=== PATIENT | female | born 1955 | race Caucasian/White ===

== ENCOUNTER 2017-02-20 09:07 | Emergency (ER) | payer OTHER ==
[~2017-02-20] VITALS: Ht 182.9 cm; Wt 82.2 kg
[2017-02-20 09:17] VITALS: Ht 182.9 cm; Wt 82.2 kg
[2017-02-20 10:58] LABS: BASOPHIL % 0.3 % (0-2); PLATELET COUNT 222 x10^3mcL (130-400); RED CELL DISTRIBUTION WIDTH 13.5 % (11.5-14.5)
[2017-02-20 11:22] LABS: CALCIUM 8.4 mg/dL (8.5-10.1); CARBON DIOXIDE 26.6 mmol/L (21-32); CHLORIDE SERUM 106 mmol/L (98-107); GFR1 > 60 mL/min; GLUCOSE SERUM 101 mg/dL (74-106); SODIUM SERUM 142 mmol/L (136-145)
[2017-02-20 11:26] LABS: ALBUMIN 3.6 g/dL (3.4-5.0); ALKALINE PHOSPHATASE 61 U/L (46-116); ALT/SGPT 26 U/L (14-59); AST/SGOT 15 U/L (15-37); BILIRUBIN TOTAL 1.5 mg/dL (0.20-1.00); LIPASE 113 IU/L (73-393)
[2017-02-20 13:24] VITALS: BP 114/68
== END 2017-02-20 13:00 | disposition home or self-care (01) ==
LOC: ED 09:07
PROVIDERS: Emergency Medicine
DX: K57.92 Diverticulitis of intestine, part unspecified, without perforation or abscess without bleeding (principal)
CPT/HCPCS: J1170; J2405; J7030

== ENCOUNTER 2018-03-11 22:21 | Observation (INO) | payer OTHER ==
[~2018-03-11] VITALS: Ht 180.3 cm; Wt 78.6 kg
[2018-03-11 22:35] VITALS: Ht 180.3 cm; Wt 78.6 kg
[2018-03-11 23:15] LABS: BASOPHIL % 0.3 % (0-2); PLATELET COUNT 230 x10^3mcL (130-400); RED CELL DISTRIBUTION WIDTH 13.6 % (11.5-14.5)
[2018-03-11 23:21] LABS: CALCIUM 8.7 mg/dL (8.5-10.1); CARBON DIOXIDE 28.6 mmol/L (21-32); CHLORIDE SERUM 107 mmol/L (98-107); CREATININE SERUM 1.1 mg/dL (0.7-1.3); GFR1 > 60 mL/min; GLUCOSE SERUM 115 mg/dL (74-106); POTASSIUM SERUM 4.5 mmol/L (3.5-5.1); SODIUM SERUM 143 mmol/L (136-145)
[2018-03-11 23:26] LABS: ALBUMIN 3.7 g/dL (3.4-5.0); ALKALINE PHOSPHATASE 69 U/L (46-116); ALT/SGPT 25 U/L (16-63); AST/SGOT 23 U/L (15-37); BILIRUBIN TOTAL 0.43 mg/dL (0.20-1.00); MAGNESIUM 1.9 mg/dL (1.8-2.4); TOTAL PROTEIN, SERUM 6.9 g/dL (6.4-8.2)
[2018-03-12 00:05] LABS: AMPHETAMINE QUAL UR NONE DETECTED (See below)
[2018-03-12 02:53] VITALS: BP 110/59
[2018-03-12 05:32] VITALS: BP 106/59
[2018-03-12 10:06] VITALS: BP 115/68
[2018-03-12 13:41] VITALS: BP 133/78
[2018-03-12 17:10] VITALS: BP 133/78
== END 2018-03-12 18:50 | disposition home or self-care (01) | DRG 313 ==
LOC: EDSEX 22:21 → ED 22:21 → DU 03-12 01:47
PROVIDERS: Emergency Medicine; ADMIT Internal Medicine Pulmonary Disease
DX: R07.89 Other chest pain (principal); R51 Headache; R42 Dizziness and giddiness
CPT/HCPCS: G0378; J2765; J3030; J7030; J8597; Q0092; Q9967

== ENCOUNTER 2019-03-02 16:35 | Inpatient (IN) | payer OTHER ==
[~2019-03-02] VITALS: Ht 182.9 cm; Wt 76.7 kg
[2019-03-02 16:47] VITALS: Ht 182.9 cm; Wt 76.7 kg
--- NOTE | 2019-03-02 17:05 | NUR ---
AWAKE ALERT ORIENTED, HYPERVENTILATING, HAS BEEN COUGHING SINCE 2 WEEKS, LOWER BACK PAIN,AND CHEST PAIN SINCE YESTERDAY DUE TO COUGH,
--- NOTE | 2019-03-02 17:18 | NUR ---
PT STATES HE WILL BE HOMLESS ,LOST THE HOUSE,DOES NOT KNOW WHAT TO DO
[2019-03-02 17:52] LABS: BASOPHIL % 0.3 % (0-2); PLATELET COUNT 200 x10^3mcL (130-400); RED CELL DISTRIBUTION WIDTH 13.7 % (11.5-14.5)
[2019-03-02 17:58] LABS: CALCIUM 9.1 mg/dL (8.5-10.1); CARBON DIOXIDE 27.5 mmol/L (21-32); CHLORIDE SERUM 103 mmol/L (98-107); CREATININE SERUM 1.1 mg/dL (0.7-1.3); GFR1 > 60 mL/min; GLUCOSE SERUM 116 mg/dL (74-106); POTASSIUM SERUM 4.5 mmol/L (3.5-5.1); SODIUM SERUM 140 mmol/L (136-145)
[2019-03-02 18:02] LABS: ALBUMIN 3.8 g/dL (3.4-5.0); ALKALINE PHOSPHATASE 72 U/L (46-116); ALT/SGPT 30 U/L (16-63); AST/SGOT 26 U/L (15-37); BILIRUBIN TOTAL 0.7 mg/dL (0.20-1.00); TOTAL PROTEIN, SERUM 7.7 g/dL (6.4-8.2)
--- NOTE | 2019-03-02 18:21 | NUR ---
BREATHING TREATMENT IN PROGRESS, REMAINS RESTLESS, BREATH SOUNDS WHEEZING
--- NOTE | 2019-03-02 19:17 | NUR ---
PT MEDICATED PER MD ORDER. PT VERBALIZED UNDERSTANDING OF MEDICATION PRIOR TO ADMINISTRATION. PER DR. YAIR BUCKLEY FOR PT TO DRINK WATER AND EAT.
[2019-03-02] MEDS ORDERED: ALBUTEROL1.25 MG/3 NEB (19:50)
[2019-03-02] MEDS ORDERED: CLARITIN10 MG PO (19:50)
[2019-03-02] MEDS ORDERED: ADV250/50 INH (19:50)
--- NOTE | 2019-03-02 20:13 | NUR ---
PT MEDICATED PER MD ORDER. PT VERBALIZED UNDERSTANDING OF MEDICATION PRIOR TO ADMINISTRATION. PT IS LAYING IN GURNEY COMFORTABLY, NO LONGER RESTLESS. REPORTS HE FEELS "MUCH BETTER WITH WHAT YOU GAVE ME". RESP E/U, NAD NOTED. BROTHER AND GIRLFRIEND AT BEDSIDE.
--- NOTE | 2019-03-02 21:10 | NUR ---
PT MEDICATED PER MD ORDER. PT VERBALIZED UNDERSTANDING OF MEDICATION PRIOR TO ADMINISTRATION. PT IS TALKING ON THE PHONE WITH MOTHER, APPEARS RESTLESS AND WEEPING.
[2019-03-02 21:16] VITALS: BP 143/82
--- NOTE | 2019-03-02 22:04 | NUR ---
CONTACTED RT FOR BREATHING TX FOR PT.
--- NOTE | 2019-03-02 22:07 | NUR ---
PT REPORTING PAIN 8/10, GIVEN TYLENOL FOR PAIN. PT APPEARS CALMER, SPEAKING IN FULL CLEAR SENTENCES, RESP E/U, NAD NOTED. PT VERBALIZED UNDERSTANDING OF MEDICATION PRIOR TO ADMINISTRATION.
--- NOTE | 2019-03-02 22:25 | NUR ---
REPORT CALLED TO KAREN LEE TO ASSUME CARE OF PT.
--- NOTE | 2019-03-02 23:00 | NUR ---
RECEIVED PT FROM ED WITH CC CP, SOB AND LOWER BACK PAIN. PT IS AAOX4. C/O 10/10 THROBBING HEADACHE. RESP EVEN AND LABORED, C/O SOB. O2 SAT 99% ON RA. PT STATED HE COULD NOT AFFORD HIS $300 ASTHMA MEDICATION. SHOWING SINUS TACH ON TELE #4, HR 115. REPORTS 8/10 HEAVY CHEST PAIN, NON-RADIATING. BOWEL SOUNDS ACTIVE, ABD SOFT, NON-TENDER. LAST BM 02/28/2019. VOIDING FREELY, REPORTS URINARY FREQUENCY. GEN WEAKNESS. C/O 10/10 ACHING BACK PAIN. IV TO LAC, NO REDNESS OR SWELLING NOTED. ORIENTED TO ROOM AND SURROUNDINGS. BED IN LOW POSITION, CALL LIGHT WITHIN REACH. ENDORSED CARE TO PRIMARY RN ROSA.
[2019-03-02 23:11] VITALS: BP 125/78
--- NOTE | 2019-03-02 23:49 | NUR ---
PT C/O INSOMNIA, MEDICATED WITH PRN AMBIEN PER APR. NO ACUTE DISTRESS NOTED. WILL CONT TO MONITOR.
--- NOTE | 2019-03-03 00:50 | NUR ---
PT LAYING DOWN IN BED, RECEIVING BREATHING TX AT THIS TIME. NO ACUTE DISTRESS NOTED. BED AT LOWEST SETTING. SIDE RAILS X2 UP. CALL LIGHT WITHING REACH. WILL CONT TO MONITOR.
--- NOTE | 2019-03-03 05:30 | NUR ---
PT SLEPT AT INTERVALS THROUGHT THE NIGHT, BREATHING EVEN AND UNLABORED ON RA. PT C/O HEADACHE PAIN 5/10 AND NECK PAIN. MEDICATED WITH PRN TYLENOL PER APR. NO ACUTE DISTRESS NOTED. ALL NEEDS ASSESSED AND ATTENDED TO. IV TO LAC INFUSING AT 70ML/HR. SITE FREE FROM REDNESS AND SWELLING. BED AT LOWEST SETTING. SIDE RAILS X2 UP. CALL LIGHT WITHING REACH. WILL CONT TO MONITOR AND ENDORSE CARE TO AM NUSE.
[2019-03-03 06:21] VITALS: BP 107/65
[2019-03-03 06:24] LABS: PLATELET COUNT 152 x10^3mcL (130-400); RED CELL DISTRIBUTION WIDTH 13.4 % (11.5-14.5)
[2019-03-03 06:34] LABS: ALKALINE PHOSPHATASE 59 U/L (46-116); ALT/SGPT 29 U/L (16-63); AST/SGOT 42 U/L (15-37); BILIRUBIN TOTAL 0.55 mg/dL (0.20-1.00); CALCIUM 7.7 mg/dL (8.5-10.1); CARBON DIOXIDE 26.7 mmol/L (21-32); CHLORIDE SERUM 104 mmol/L (98-107); CREATININE SERUM 0.8 mg/dL (0.7-1.3); GFR1 > 60 mL/min; GLUCOSE SERUM 96 mg/dL (74-106); MAGNESIUM 1.9 mg/dL (1.8-2.4); POTASSIUM SERUM 3.7 mmol/L (3.5-5.1); SODIUM SERUM 141 mmol/L (136-145); TOTAL PROTEIN, SERUM 6.2 g/dL (6.4-8.2)
--- NOTE | 2019-03-03 07:30 | NUR ---
RECEIVED PATIENT FROM PREVIOUS STAFF AND IS SLEEPING AT THIS TIME NO SIGNS OF DISTRESS AND HAD RECEIVED AMBIEN LAST NIGHT AND TYLENOL FOR HEADACHE AT 525 THIS AM. WILL CONTINUE TO MONITOR.
[2019-03-03 07:54] VITALS: BP 116/59
--- NOTE | 2019-03-03 09:36 | NUR ---
GAVE TYLENOL FOR HEADACHE POST THE BREATHING TREATMENT. PATIENT HAS A COUGH AND REPORTED PRODUCTIVE. PATIENT HAS RALES AND SOME WHEEZING TO THE UPPER LOBES. HE HAS NO EDEMA AND ABDOMEN IS FIRM AND FLAT. PATIENT HAS BEEN TOLERATING DIET AND FLUIDS AND HAS HAD A COMPLAINT OF HEADACHE EARLIER TODAY WELL. HE HAS BEEN SEEN BY THE RESIDENT AND INTERNS AND PLAN OF CARE DISCUSSED. PATIEN TS NOW WITH AN ORDER FOR COUGH MEDICATION AND SOLUMEDROL. VITALS AT THIS TIME. 99.2, 84, 18, 116/59, 97%. PATIENT HAS NOTED CA AT 7.7, PROTIEN AT 6.2 AND ALBUMIN 3.0.
[2019-03-03 12:30] VITALS: BP 122/70
[2019-03-03 16:54] VITALS: BP 141/78
--- NOTE | 2019-03-03 18:02 | NUR ---
PATIENT STETS CHINTAN ROBITUSSION WAS EFFECTIVE AND THE CODIENE WAS NOT MAKING HIM SLEEPY. PATIENT HAS NOT BEEN COUGHING FOR A WHILE NOW. WILL CONTINUE TO MONITOR INDICATED.
--- NOTE | 2019-03-03 18:37 | NUR ---
REQUESTED TYLENOL FOR NECK PAIN. WILL ENDORSE TO THE ON COMING SHIFT.
--- NOTE | 2019-03-03 20:01 | NUR ---
RECEIVED PATIENT IN BED AWAKE, ALERT AND ORIENTED WITH NO SIGN OF ACUTE RESPIRATORY DISTRESS. BREATHING EASYA ND NONLABOR WITH CLEAR BS SATTING AT 98% RA. C/O PRODUCTIVE COUGH WITH GRAYISH SPUTUM PER PATIENT. TELE#7 NSR ON MONITOR, DENIES CHESTPAIN. ABDOMEN ROUND AND NON TENDER WITH ACTIVE BS. IV TO LAC INTACT AND INFUSING WELL. WILL CONTINUE TO MONITOR. CALL LIGHT WITHIN REACH.
[2019-03-03 21:19] VITALS: BP 117/72
--- NOTE | 2019-03-03 21:21 | NUR ---
PATIENT COUGHING ,REQUESTED COUGH SYRUP, ROBITUSSIN WITH CODEINE GIVEN PO PRESCRIBED.
--- NOTE | 2019-03-03 23:46 | NUR ---
APPEAR TO BE SLEEPING THIS TIME BREATHING EASYA ND NONLABOR. WILL CONTINUE TO MO ITOR.
--- NOTE | 2019-03-04 05:05 | NUR ---
SLEPT AT LONG INTERVALS, DENIES PAINA ND DISCOMFORT THE ENTIRE SHIFT. ALL NEEDS ATTENDED.
[2019-03-04 05:17] VITALS: BP 114/59
--- NOTE | 2019-03-04 08:00 | NUR ---
RECEIVED PATIENT WITH MOANING AND GROANING AND STATES HE IS WITH NAUSEA AND PAIN. GAVE ZOFRAN ORDERED AND DID NOT REQUEST PAIN MEDICATION AT THIS TIME IV INTACT AND PATIENT GIVEN SOLUMEDROL AND JUST RECEIVED HHN TREATMENT. THE PATIEN TIS NO LONGER WHEEZING AND HAS DENIED COUGING UP ANY MORE PHLEGM. PATIENT HAS BEEN AMBULATORY AND DENIES HAVING A STOOL. DR AGUSTIN IN AND ORDERED SENOKOT AND DUCOLAX FOR THE PATIENT. THE PATIENT SEEMS EMOTIONAL AND SEEMS MORE THAN FOR THE ISSUE AT HAND AND HAD BEEN WITH BOUTS OF DEPRESSION IN HIS HISTORY. HE IS ON ROOM AIR AND NO RESPIRATORY DISTRESS AT THIS TIME. THE COUGH HAS BEEN NON PRODUCTIVE AND PATEINT RECIEVED LEVAQUIN AND NO ADVERSE REACTION NOTED. VITALS AT THIS TIME AT 141/72, 18, 97.2, 74, 97%. WILL CONTINUE TO MONITOR FOR EFFECTIVENESS OF THE ZOFRAN GIVEN.
[2019-03-04 09:01] VITALS: BP 141/72
--- NOTE | 2019-03-04 10:11 | NUR ---
PATIENT HAS FALLEN ASLEEP AND AFTER HIS COMPLAINTS OF LACK OF SLEEP DUE TO NOISE LAST NIGHT, STAFF OPTED TO LET HIM SLEEP AND WILL GIVE THE DUCOLAX AND THE SENOKOT WHEN HE AWAKES AGAIN.
--- NOTE | 2019-03-04 13:18 | NUR ---
PATIENT SHOWS ALOT OF ANXIETY AND IS ALMOST IN TEARS. HE IS NOT ABLE TO HANDLE THE CRAZINESS IN THE WORLD. HE IS TURNING 64 AND WHY CAN'T EVERYONE BE LIKE IT WAS IN THE SIXTIES. THE NURSE IS THE SAME AGE SHE AGREES BUT HE MUST NOT TAKE ON THE WORLDS PROBLEMS AND BE THE LIGHT HE WISHES WAS IN OTHERS. DR CUEVAS CALLED AND ADVISED AND HE IS AWARE OF PATIENT TEARFULNESS AND PSYCH CONDITION. HE MAY NEED TO SEE SOMEONE AFTER DISCHARGE. PATIENT HAS NOT HAD A STOOL YET AND DR WILL BE IN TO ASSESS AND SEE IF HE CAN GO HOME LATER TODAY.
[2019-03-04 13:50] VITALS: BP 138/75
--- NOTE | 2019-03-04 15:46 | NUR ---
STATES HAS NAUSEA POST BREATHING TREATMENT. GAVE ZOFRAN AND WILL MONITOR FOR EFFECTIVENESS.
[2019-03-04 17:40] VITALS: BP 113/73
--- NOTE | 2019-03-04 19:32 | NUR ---
RECEIVED PATIENT IN BED AWAKE, ALERT AND ORIENTED WITH NO SIGN OF DISTRESS NOTED. BREATHING EASY AND NONLABOR SATTING AT 97% RA. TELE# 4 NSR ON MONITOR DENIES CHEST DISCOMFORT. IV TO LAC INTACTR AND INFUSING WELL. WILL CONTINUE TO MONITOR. FAMILY MEMBERS AT BEDSIDE.
--- NOTE | 2019-03-04 19:37 | NUR ---
RESPIRATORY THERAPIST AT BEDSIDE ADMINISTERING BREATHING T REATMENT, PATIENT TOLERATED WELL.
[2019-03-04 20:30] VITALS: BP 102/68
--- NOTE | 2019-03-04 21:14 | NUR ---
C/O HEADACHE TYLENOL 650 MG PO GIVEN PRESCRIBED. WILL CONTINUE TO MONITOR.
--- NOTE | 2019-03-04 23:35 | NUR ---
RECEIVED PT AT THIS TIME. PT AAOX4. DENIES ANY PAIN. NO ACUTE DISTRESS NOTED. CALL BUTTON WITHIN REACH. SAFETY PRECAUTIONS IN PLACE. WILL CONTINUE TO MONITOR.
--- NOTE | 2019-03-05 01:03 | NUR ---
PT REPORTED HAVING DIFFICULT SLEEPING, REQUESTING FOR SLEEPING MEDICATION. MEDICATED PER EMAR. CALL BUTTON WITHIN REACH. SAFETY PRECAUTIONS IN PLACE. WILL MONITOR.
--- NOTE | 2019-03-05 05:01 | NUR ---
PT SLEPT MOST OF THE NIGHT WITH NO ACUTE DISTRESS NOTED. PT USED URINAL AT BEDSIDE. PT BREATHING EVEN AND UNLABORED ON RA W/ NO SOB NOTED. IV PATENT, INFUSING WELL. MEDICATED PER EMAR. NO ACUTE DISTRESS NOTED. CALL BUTTON WITHIN REACH. SAFETY PRECAUTIONS IN PLACE. WILL CONTINUE TO MONITOR AND ENDORSE CARE TO DAY SHIFT RN.
[2019-03-05 05:27] VITALS: BP 120/70
--- NOTE | 2019-03-05 07:50 | NUR ---
RECEIVED PT FROM BROOMCORN SEEDER RN. Leah/PRINCESS. TELE#4. DENIES CHEST PAIN/PRESSURE. RESPIRATIONS EQUAL AND UNLABORED ON RA. DENIES SOB AT THIS TIME. PT C/O COUGH ON AND OFF, PT STATES COUGH IS NONPRODUCTIVE. PT C/O VELAZQUEZ THROBBING. WILL MEDICATE PER EMAR. PT DENIES ANY N/V AT THIS TIME. PT SITTING UP EATING BREAKFAST TOLERATING WELL. IV TO LAC PATENT AND INFUSING. NO REDNESS OR SWELLING NOTED. ASKED PT IF HE HAS SOMEWHERE TO GO UPON DISCHARGE. PT STATES "MY GIRLFRIEND STEPHAN LIVES HERE IN [place]. SHE WILL PICK ME UP. HOPEFULLY I CAN GO HOME TODAY." EXPLAINED TO PT WILL AWAIT FOR DOCTOR TO FIND OUT POC. PT VERBALIZED UNDERSTANDING. WILL CONTINUE TO MONITOR. CALL LIGHT IN REACH. BED IN LOWEST POSITION.
--- NOTE | 2019-03-05 08:02 | NUR ---
PT IN NO ACUTE DISTRESS. ENDORSED CARE TO DAY SHIFT RN, ALL QUESTIONS ADDRESSED.
[2019-03-05 08:04] VITALS: BP 118/73
[2019-03-05] MEDS ORDERED: VENTOLIN H0.09 MG/A1 INH (08:20)
[2019-03-05] MEDS ORDERED: LEVOFLOXACIN500 M1 PO (08:21)
[2019-03-05] MEDS ORDERED: WIXELA 250-501 EACH IH (08:21)
[2019-03-05] MEDS ORDERED: PREDNISONE10 MG PO (08:22)
[2019-03-05 08:38] VITALS: BP 118/73
--- NOTE | 2019-03-05 08:58 | NUR ---
PT SITTING UP IN BED. PT CONTINUALLY HAVING NONPRODUCTIVE COUGH. PT C/O NAUSEA. MEDICATED PER EMAR. RESPIRATORY THERAPIST AT BEDSIDE, WILL COME BACK TO GIVE BREATHING TREATMENT DUE TO PT FEELING NAUSEOUS. GIVEN PO MEDS. TOLERATED WELL. IV TO LAC PATENT AND INFUSING. NO REDNESS OR SWELLING NOTED. WILL CONTINUE TO MONITOR. CALL LIGHT IN REACH. BED IN LOWEST POSITION.
--- NOTE | 2019-03-05 11:02 | NUR ---
PT IN BED. PT STATES "I FEEL REALLY NAUSEOUS AND WEAK." PT STATES "MY NAUSEA HASN'T IMPROVED SINCE THE MEDICATION. I KNOW THE DOCTOR IS DISCHARGING ME BUT I JUST WISH I COULD STAY ANOTHER DAY. IF I FEEL LIKE THIS AT HOME I COULD ALWAYS GO TO THE ER AGAIN." PAGED DR. GARVIN REGARDING PT CONCERNS. AWAITING CALL BACK.
--- NOTE | 2019-03-05 11:18 | NUR ---
SPOKE WITH DR. GARVIN REGARDING PT COMPLAINTS. PER DR. GARVIN PT IS STABLE FOR DISCHARGE, PT HAS BEEN CLEARED FOR DISCHARGE FROM HIS STANDPOINT SINCE YESTERDAY. PER DR. GARVIN NO OTHER MEDICAL TREATMENT IS NEEDED AT THIS TIME.
--- NOTE | 2019-03-05 12:00 | NUR ---
INSPECTOR PURCHASED PARTS JORDANA SPOKE WITH PT. PER JORDANA PT DOES NOT WANT TO APPEAL DISCHARGE AT THIS TIME. PER JORDANA PT EXPRESSED HE HAS SOMEWHERE TO GO ONCE HE IS DISCHARGED AND HIS GIRLFRIEND WILL BE THE ONE TO PICK HIM UP.
[2019-03-05 12:27] VITALS: BP 98/58
[2019-03-05 12:29] VITALS: BP 136/76
--- NOTE | 2019-03-05 12:40 | NUR ---
PT SITTING UP IN BED. PT EATING LUNCH. PT STATES "I'M OKAY WITH GOING HOME. MY GIRLFRIEND SAID SHE'LL BE HERE TO PICK ME UP AROUND 1PM." PT STATES "I AM GOING TO EAT AND WALK AROUND TO" PT STATES WILL WAIT FOR DISCHARGE INSTRUCTIONS WHEN GIRLFRIEND ARRIVES. WILL CONTINUE TO MONITOR. CALL LIGHT IN REACH. BED IN LOWEST POSITION.
--- NOTE | 2019-03-05 14:15 | NUR ---
PT SITTING UP IN BED. PT GIVEN DISCHARGE INSTRUCTIONS. PT INSTRUCTED TO CONTINUE HOME MEDICATIONS PRESCRIBED. PT GIVEN PRESCRIPTIONS AND EDUCATED ON USE OF MEDICATION. PT ENCOURAGED TO INCREASE ACTIVITY TOLERATED. PT VERBALIZED UNDERSTANDING. PT ENCOURAGED TO FOLLOW UP WITH PCP WITHIN 1 WEEK. PT VERBALIZED UNDERSTANDING. IV TO LAC REMOVED CATHETER INTACT. NO REDNESS OR SWELLING NOTED. ALL QUESTIONS AND CONCERNS ADDRESSED. NO PROBLEMS ENCOUNTERED. TELE#4 RETURNED TO SHOE SPRAYER DOMINIC. PT TAKEN OFF FLOOR.
== END 2019-03-05 14:15 | disposition home or self-care (01) | DRG 202 ==
LOC: ED 16:35 → DU 20:14
PROVIDERS: ADMIT Internal Medicine Pulmonary Disease
DX: J45.901 Unspecified asthma with (acute) exacerbation (principal); E87.2 Acidosis; J20.9 Acute bronchitis, unspecified; K59.00 Constipation, unspecified; E11.9 Type 2 diabetes mellitus without complications; F41.9 Anxiety disorder, unspecified; Z68.24 Body mass index [BMI] 24.0-24.9, adult
CPT/HCPCS: 87804; G0378; J1650; J1956; J2270; J2405; J2920; J7030; J7613; J7620; J7626; J7644